=== PATIENT | female | born 1945 | race Caucasian/White ===

== ENCOUNTER 2023-04-29 13:25 | Observation (INO) | payer OTHER ==
[~2023-04-29] VITALS: Ht 154.9 cm; Wt 90.9 kg
[2023-04-29 14:45] LABS: Basophils # (auto) 0 10 ^3/uL (0-0.2); Basophils % (auto) 0.3 % (0.0-2.0); Eosinophils # (auto) 0 10 ^3/uL (0-0.8); Eosinophils % (auto) 0.1 % (0.0-7.0); Hematocrit 33.5 % (36.0-46.0); Hemoglobin 10.7 g/dL (12.2-16.2); Lymphocytes # (auto) 1.7 10 ^3/uL (0.4-5.4); Lymphocytes % (auto) 19.1 % (10.0-50.0); Mean Corpuscular Hemoglobin 32.5 pg (28.0-32.0); Mean Corpuscular Hgb Conc. 32.1 g/dL (32.0-36.0); Mean Corpuscular Volume 101.2 fL (80.0-100.0); Monocytes # (auto) 0.4 10 ^3/uL (0-1.3); Monocytes % (auto) 4.9 % (0.0-12.0); Neutrophils # (auto) 6.6 10 ^3/uL (1.6-8.6); Neutrophils % (auto) 75.6 % (37.0-80.0); Nucleated Red Blood Cells % 0.3 %; Red Blood Cells 3.31 10^6/uL (4.0-5.20); Red Cell Distribution Width 15.8 % (11.8-14.3); White Blood Cell 8.7 10^3/uL (4.4-10.8)
[2023-04-29 15:01] LABS: Albumin 2.7 g/dL (3.4-5.0); Calcium 7.6 mg/dL (8.5-10.1); Magnesium 1.6 mg/dL (1.6-2.6); Potassium 5.5 mmol/L (3.5-5.1)
[2023-04-29 15:05] LABS: BUN/Creatinine Ratio 15.5 (10.0-20.0); Bilirubin, Total 0.5 mg/dL (0.2-1.0)
[2023-04-29 15:30] LABS: INR 1.14 (0.9-1.15); Partial Thromboplastin Time 25.5 sec (24.6-33.4)
[2023-04-29] MEDS ORDERED: FUROSEMIDE 40 MG/4 ML VIAL IV ONE (17:45)
[2023-04-29 19:17] LABS: Urine Bacteria NONE SEEN /hpf (None Seen); Urine Blood TRACE /uL (Negative); Urine Specific Gravity 1.017 (1.001-1.035); Urine WBC 112 /hpf (0 - 5)
[2023-04-29] MEDS ORDERED: MORPHINE SULFATE INJ 2 MG/ml SYRG IV PRN (20:00)
[2023-04-29] MEDS ORDERED: ONDANSETRON HCL 4 MG/2 ML VIAL IV PRN (20:00)
[2023-04-29] MEDS ORDERED: NITROGLYCERIN 0.4 MG SL TAB SL PRN (20:00)
[2023-04-29] MEDS: ALBUMIN 25% 100 ML IV SCH (22:07)
[2023-04-30] MEDS: FUROSEMIDE 40 MG/4 ML VIAL IV SCH ×2 (02:05→09:10)
[2023-04-30 05:43] LABS: Basophils # (auto) 0 10 ^3/uL (0-0.2); Basophils % (auto) 0.2 % (0.0-2.0); Eosinophils # (auto) 0 10 ^3/uL (0-0.8); Eosinophils % (auto) 0.3 % (0.0-7.0); Hematocrit 30.7 % (36.0-46.0); Hemoglobin 10.2 g/dL (12.2-16.2); Lymphocytes # (auto) 2.4 10 ^3/uL (0.4-5.4); Lymphocytes % (auto) 28.6 % (10.0-50.0); Mean Corpuscular Hemoglobin 33.1 pg (28.0-32.0); Mean Corpuscular Hgb Conc. 33.2 g/dL (32.0-36.0); Monocytes # (auto) 0.6 10 ^3/uL (0-1.3); Monocytes % (auto) 6.7 % (0.0-12.0); Neutrophils # (auto) 5.4 10 ^3/uL (1.6-8.6); Neutrophils % (auto) 64.2 % (37.0-80.0); Nucleated Red Blood Cells % 0.3 %; Red Blood Cells 3.07 10^6/uL (4.0-5.20); Red Cell Distribution Width 15.3 % (11.8-14.3); White Blood Cell 8.5 10^3/uL (4.4-10.8)
[2023-04-30] MEDS: ALBUMIN 25% 100 ML IV SCH ×2 (05:51→13:19)
[2023-04-30 05:56] LABS: Potassium 4.7 mmol/L (3.5-5.1)
[2023-04-30 06:02] LABS: Albumin 3.1 g/dL (3.4-5.0); BUN/Creatinine Ratio 16.2 (10.0-20.0); Bilirubin, Total 0.6 mg/dL (0.2-1.0); Total Protein 6.3 g/dL (6.4-8.2)
[2023-04-30] MEDS ORDERED: levoFLOXacin 250MG 50 ML IV SCH (07:30)
[2023-04-30] MEDS ORDERED: HYDROcodone-ACET 10/325MG TAB PO PRN (11:30)
[2023-04-30] MEDS ORDERED: VENLAFAXINE HCL 37.5mg XR cap PO ONE (11:45)
[2023-04-30 17:17] VITALS: BP 103/73
[2023-04-30] MEDS ORDERED: NAP500T PO (17:39)
[2023-04-30] MEDS ORDERED: LOSA50TA46 PO (17:39)
[2023-04-30] MEDS ORDERED: VENL75CA78 PO (17:39)
[2023-04-30] MEDS ORDERED: HYDR-4072 PO (17:39)
[2023-04-30] MEDS ORDERED: TRIA75TA55 PO (17:39)
[2023-04-30] MEDS ORDERED: OMEP-335 PO (17:39)
[2023-04-30] MEDS ORDERED: TRIA37.586 PO (17:39)
[2023-05-01] MEDS ORDERED: VENLAFAXINE HCL 37.5mg XR cap PO SCH (10:00)
[2023-05-01] MEDS ORDERED: levoFLOXacin 250MG 50 ML IV SCH (10:00)
== END 2023-04-30 20:41 | disposition home or self-care (01) ==
LOC: EDBD 13:25 → ER 13:25 → TELE 20:12 → UNDOADMIN 20:12 → TELE 20:12 → TELE-WESTW 04-30 15:32 → TELE 04-30 15:32 → UNDODISIN 04-30 19:55
PROVIDERS: ADMIT Internal Medicine; ATTEND Internal Medicine
DX: I21.4 Non-ST elevation (NSTEMI) myocardial infarction (principal); N17.9 Acute kidney failure, unspecified; I13.0 Hypertensive heart and chronic kidney disease with heart failure and stage 1 through stage 4 chronic kidney disease, or unspecified chronic kidney disease; I50.9 Heart failure, unspecified; N18.9 Chronic kidney disease, unspecified; D63.1 Anemia in chronic kidney disease; I95.9 Hypotension, unspecified; E87.20 Acidosis, unspecified; E03.9 Hypothyroidism, unspecified; N39.0 Urinary tract infection, site not specified; E66.9 Obesity, unspecified; E87.5 Hyperkalemia; E23.7 Disorder of pituitary gland, unspecified; R77.8 Other specified abnormalities of plasma proteins; R79.89 Other specified abnormal findings of blood chemistry; Z87.442 Personal history of urinary calculi; Z79.899 Other long term (current) drug therapy; Z98.890 Other specified postprocedural states; Z91.199 Patient's noncompliance with other medical treatment and regimen due to unspecified reason; Z68.37 Body mass index [BMI] 37.0-37.9, adult; Z87.891 Personal history of nicotine dependence
CPT/HCPCS: 36415; 51702; 71045; 71250; 74176; 76775; 80053; 81001; 82306; 83735; 83880; 83970; 84100; 84443; 84484; 85025; 85610; 85730; 87040; 87086; 93005; 93306; 96365; 96366; 96367; 96375; 96376; 99291; G0378; J1940; J1956; J2405; P9047